=== PATIENT | male | born 2000 | race Caucasian/White ===

== ENCOUNTER 2021-04-16 13:16 | Emergency (ER) | payer BC ==
[~2021-04-16] VITALS: Ht 188 cm; Wt 80.7 kg
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
--- NOTE | 2021-04-16 14:45 | NUR ---
BACK FROM RADIOLOGY
--- NOTE | 2021-04-16 15:14 | NUR ---
Patient discharged to home in stable condition. Written and verbal after care instructions given. Patient verbalizes understanding of instruction. Pt ambulatory with a steady gait.
[2021-04-16 16:03] VITALS: BP 142/88
== END 2021-04-16 15:35 | disposition home or self-care (01) ==
LOC: ER 13:18
DX: M54.6 Pain in thoracic spine (principal); M54.5 Low back pain; V49.69XA Unspecified car occupant injured in collision with other motor vehicles in traffic accident, initial encounter; Y93.89 Activity, other specified; Y92.413 State road as the place of occurrence of the external cause; Y99.8 Other external cause status
CPT/HCPCS: 72074-TC; 72110-TC